=== PATIENT | female | born 1965 | race Caucasian/White ===

== ENCOUNTER 2023-04-20 14:38 | Emergency (ER) | payer OTHER ==
[~2023-04-20] VITALS: Ht 149.9 cm; Wt 75.7 kg
[2023-04-20 15:37] LABS: Basophils # (auto) 0 10 ^3/uL (0-0.2); Basophils % (auto) 0.6 % (0.0-2.0); Eosinophils # (auto) 0.2 10 ^3/uL (0-0.8); Eosinophils % (auto) 2.5 % (0.0-7.0); Hematocrit 40.3 % (36.0-46.0); Hemoglobin 13.4 g/dL (12.2-16.2); Lymphocytes # (auto) 1.9 10 ^3/uL (0.4-5.4); Lymphocytes % (auto) 28.1 % (10.0-50.0); Mean Corpuscular Hemoglobin 28.8 pg (28.0-32.0); Mean Corpuscular Hgb Conc. 33.2 g/dL (32.0-36.0); Mean Corpuscular Volume 86.8 fL (80.0-100.0); Monocytes # (auto) 0.7 10 ^3/uL (0-1.3); Monocytes % (auto) 10.4 % (0.0-12.0); Neutrophils # (auto) 3.9 10 ^3/uL (1.6-8.6); Neutrophils % (auto) 58.4 % (37.0-80.0); Red Blood Cells 4.65 10^6/uL (4.0-5.20); Red Cell Distribution Width 13.5 % (11.8-14.3); White Blood Cell 6.7 10^3/uL (4.4-10.8)
[2023-04-20 15:53] LABS: INR 0.96 (0.9-1.15); Prothrombin Time 10.1 sec (9.3-11.8)
[2023-04-20 16:01] LABS: Alanine Aminotransferase 28 U/L (7-40); Albumin 4.6 g/dL (3.2-4.8); Alkaline Phosphatase 34 U/L (46-116); Anion Gap 6 (5-15); Aspartate Aminotransferase 23 U/L (13-40); BUN/Creatinine Ratio 24.3 (10.0-20.0); Bilirubin, Total 0.3 mg/dL (0.2-1.0); Blood Urea Nitrogen 18 mg/dL (9-23); Calcium 9.3 mg/dL (8.7-10.4); Carbon Dioxide 29 mmol/L (20-30); Chloride 103 mmol/L (98-107); Glucose 86 mg/dL (74-106); Magnesium 1.8 mg/dL (1.6-2.6); Potassium 3.7 mmol/L (3.5-5.1); Sodium 138 mmol/L (136-145); Total Protein 6.9 g/dL (5.7-8.2)
[2023-04-20 19:44] VITALS: BP 174/91; PULSE 65; RESP 16; TEMP 97.6; O2SAT 97
[2023-04-20] MEDS: IOHEXOL 350 MG/ML 100ML IJ ONE (20:34)
[2023-04-20] MEDS: ASPirin-EC 325mg tab PO ONE (20:35)
== END 2023-04-20 23:14 | disposition left against medical advice (07) ==
LOC: ER 14:38
DX: I63.9 Cerebral infarction, unspecified (principal); I10 Essential (primary) hypertension; R47.81 Slurred speech; Z98.890 Other specified postprocedural states; Z91.012 Allergy to eggs
CPT/HCPCS: 36415; 70450; 70496; 71045; 80053; 83735; 83880; 84484; 85025; 85610; 85730; 93005; 99285; Q9967